=== PATIENT | male | born 2005 | race Two or more races ===

== ENCOUNTER → 2025-02-23 | Outpatient (CLI) | payer OTHER, SELFPAY ==
--- NOTE | 2025-02-23 07:00 | XR_ITS ---
Examination: MRI lumbar spine without contrast Date and time of exam: February 23, 2025 0704 hours Comparison September 06, 2022 INDICATIONS: Low back pain post injury 6 years ago, radiating down the right leg Technique: Multiple MRI axial and sagittal sections lumbar spine. Sagittal T2-weighted images, TR 3500, TE 118 T1 weighted transverse sections, TR 688 T8.5, T2-weighted sagittal sections T1 weighted sagittal sections TR 621, TE 30 T2 axial sections, TR 4, 190, TE 84. Findings: Adequate alignment lumbar vertebral bodies on the lateral view No lumbar fracture Disc desiccation and mild narrowing L4-L5 No spondylolisthesis L5-S1 no disc protrusion L4-L5 partially extruded 7 mm central right paracentral disc bulge displacing the right L5 nerve root L3-L4 3 mm central lumbar disc bulge L2-L3 no disc protrusion L1-L2 no disc protrusion IMPRESSION: L5-S1 large, 7 mm, extruded central right paracentral disc bulge displacing the right L5 nerve root
== END | disposition home or self-care (01) ==
LOC: SMRI 06:40
PROVIDERS: PCP Family Medicine; Referring Provider Family Medicine; Visit Provider Family Medicine
DX: M51.27 Other intervertebral disc displacement, lumbosacral region (principal)
CPT/HCPCS: 72148

== ENCOUNTER 2025-07-28 15:30 | Outpatient (RCR) | payer OTHER, SELFPAY ==
--- NOTE | 2025-07-21 15:14 | PTNOTE_ITS ---
PT OP Initial Eval Patient Information Outpatient Physical Therapy Treatment Date: 07/21/25 Visit Reasons: BACK PAIN Medical Diagnosis: M51.16 Treatment Dx #1: LBP with radiculopathy Start of Care: 07/21/25 Date of Onset: 6 yrs ago Smoking Status Smoking Status: Never smoker Initial Assessment Subjective: Pt is 19 yr old male who c/o LBP that runs down the R LE since a high school football injury. Increased pain with bending, sitting and lifting. PMH: none reported Imaging: MRI from 2021 and 2024 in EMR Pt goal: less LBP and LE pain to move better Objective: Trunk ArOM: ? B SB 50% of normal with pain ? Extension: 20% with pain around L4-5, L5-S1 ? Flexion: 10 from floor with LBP ? B rotation: 60% with pain ? TTP: moderate paraspinals L5-S1 ? Neuro: B SLR: positive Assessment: Pt presents with trunk flexion sensitivity and overlying myofascial pain ? and TTP around L5-S1 consistent with MRI that reveals ? lower lumbar disc bulge(s) with R LE radiculopathy. Pt requires skilled therapy in order to decrease ? pain and improve sitting/standing tolerance and has fair rehab potential. Eval ?followed by HEP printout. Short Term and Medical Record Retrieval Specialist Goals 1. Ind with HEP ? 2. Improved sitting/standing tolerance to 30 minutes with <=4/10 LBP ? 3. Decreased lower paraspinal TTP from mod to min Treatment Plan 1. Manual therapy ? 2. Therex ? 3. Modalities as indicated, moist heat, ice, estim, mechanical traction Frequency and Duration: 2x a week for 12 visits plus the evaluation Certification Dates: 07/21/25 to 10/19/25 Procedure Charges OP PT Eval Mod Complex 30 minutes: Yes
--- NOTE | 2025-07-28 17:34 | PT.ODAYNRPT ---
PT Outpatient Daily Note OP Daily Note Outpatient Physical Therapy Treatment Date: 07/28/25 Visit Reasons: BACK PAIN Subjective: Same as time of evaluation Objective: See F/S for therex Assessment: Good demo of prone extension with low tissue irritability Plan: Continue per POC Length of Time (minutes) of Treatment: 30 Minutes Procedure Charges Therapeutic Exercise 30 minutes: Yes
== END 2025-08-07 23:59 | disposition home or self-care (01) ==
LOC: CPTX 15:30
PROVIDERS: PCP Family Medicine; Referring Provider Nurse Practitioner Primary Care; Visit Provider Nurse Practitioner Primary Care
DX: M51.16 Intervertebral disc disorders with radiculopathy, lumbar region (principal)
CPT/HCPCS: 97110; 97162

== ENCOUNTER 2025-08-24 11:30 | Outpatient (RCR) | payer OTHER, SELFPAY ==
--- NOTE | 2025-08-11 15:59 | PT.ODAYNRPT ---
PT Outpatient Daily Note OP Daily Note Outpatient Physical Therapy Treatment Date: 08/11/25 Visit Reasons: back pain Subjective: Pt reports back pain is better, has been compliant with performing HEP. Objective: Please see flow sheet for ther ex list. Assessment: Pt instructed on lateral stepping with light thera band resulting in minimal glute/hip discomfort. Pt encouraged to continue repeated lumbar extension for HEP. Plan: Continue with pOC. Length of Time (minutes) of Treatment: 30 Minutes Procedure Charges Therapeutic Exercise 30 minutes: Yes
--- NOTE | 2025-08-17 13:05 | PT.ODAYNRPT ---
PT Outpatient Daily Note OP Daily Note Outpatient Physical Therapy Treatment Date: 08/17/25 Visit Reasons: back pain Subjective: Less LBP after therapy and doing HEP Objective: See F/S for therex Assessment: Good demo of prone extension with low tissue irritability Plan: Continue per POC Length of Time (minutes) of Treatment: 30 Minutes Procedure Charges Therapeutic Exercise 30 minutes: Yes
--- NOTE | 2025-08-24 17:36 | PT.ODAYNRPT ---
PT Outpatient Daily Note OP Daily Note Outpatient Physical Therapy Treatment Date: 08/24/25 Visit Reasons: back pain Subjective: Less LBP after therapy and doing HEP Objective: See F/S for therex Assessment: Good demo of prone extension with low tissue irritability Plan: Continue per POC Length of Time (minutes) of Treatment: 30 Minutes Procedure Charges Therapeutic Exercise 30 minutes: Yes
== END 2025-09-07 23:59 | disposition home or self-care (01) ==
LOC: CPTX 11:30
PROVIDERS: PCP Nurse Practitioner Primary Care; Referring Provider Nurse Practitioner Primary Care; Visit Provider Nurse Practitioner Primary Care
DX: M51.16 Intervertebral disc disorders with radiculopathy, lumbar region (principal)
CPT/HCPCS: 97110